=== PATIENT | female | born 1965 | race Caucasian/White ===

== ENCOUNTER 2018-07-15 11:24 | Inpatient (IN) | payer OTHER ==
[~2018-07-15] VITALS: Ht 157.5 cm; Wt 58.4 kg
[2018-07-15] MEDS ORDERED: ONDANSETRON 2MG/ML, 2ML IVPush ONE (11:30)
--- NOTE | 2018-07-15 11:35 | NUR ---
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 PAIN STARTED SUDDENLY. PT REPORTS DIARRHEA TODAY. SIMA BLOOD IN HER STOOL. PT SEEN BY DR. FISHMAN, IV STARTED. PT TO BE MEDICATED FOR PAIN.
[2018-07-15] MEDS ORDERED: ONDANSETRON 2MG/ML, 2ML ONE (11:42)
[2018-07-15] MEDS ORDERED: HYDROmorphone 1 MG/ML, 1ML ONE ×2 (11:43→13:37)
[2018-07-15] MEDS: HYDROmorphone 2 MG/ML, 1ML IVPush PRN ×2 (11:44→13:42)
--- NOTE | 2018-07-15 11:55 | NUR ---
TASK RN: PT SP02 = 72% ON RA FOLLOWING DILAUDID IVP. AT AWAKE AND CONVERSES APPROPRIATELY. 02 2L NC PLACED WITH EFFECT.
[2018-07-15 11:56] LABS: BASOPHILS # (AUTO) 0.06 x10^3/uL (0-0.1); BASOPHILS % (AUTO) 1 % (0-1); EOSINOPHILS # (AUTO) 0.09 x10^3/uL (0-0.4); EOSINOPHILS % (AUTO) 2 % (1-7); LYMPHOCYTES # (AUTO) 2.21 x10^3/uL (1-3.4); LYMPHOCYTES % (AUTO) 43 % (22-44); MD NO; MEAN CORPUSCULAR HEMOGLOBIN 30.5 pg (27.0-34.8); MEAN CORPUSCULAR HGB CONC 32.8 g/dL (32.4-35.8); MEAN PLATELET VOLUME 7.9 fL (7.4-10.4); MONOCYTES # (AUTO) 0.78 x10^3/uL (0.2-0.8); MONOCYTES % (AUTO) 15 % (2-9); NEUTROPHILS # (AUTO) 2.03 x10^3/uL (1.8-6.8); NEUTROPHILS % (AUTO) 39 % (42-75); PLATELET COUNT 188 x10^3/uL (130-400); RED CELL DISTRIBUTION WIDTH 13.9 % (9.6-15.2)
[2018-07-15 12:06] LABS: ALBUMIN 3.3 g/dL (3.4-5.0); ANION GAP 6 mmol/L (5-15); CALCIUM 8.1 mg/dL (8.5-10.1); CHLORIDE 103 mmol/L (98-107)
[2018-07-15 12:09] LABS: ALANINE AMINOTRANSFERASE 54 U/L (12-78); ALKALINE PHOSPHATASE 82 U/L (45-117); BILIRUBIN,TOTAL 0.2 mg/dL (0.2-1.0); CREATININE 0.46 mg/dL (0.55-1.02); TOTAL PROTEIN 6.1 g/dL (6.4-8.2)
--- NOTE | 2018-07-15 12:28 | NUR ---
PT TO CT.
[2018-07-15] MEDS ORDERED: OMNIPAQUE 350 MG/ML, 100ML BOTTLE ONE (13:07)
--- NOTE | 2018-07-15 13:23 | NUR ---
PT C/O OF WANTING TO COUGH BUT DOES NOT WANT TO DUE TO ABD PAIN. STILL WAITING FOR CT. PT WANTS TO USE INHALER BUT DID NOT BRING IT. DR. FISHMAN AWARE.
[2018-07-15 13:35] LABS: MICROSCOPIC NOT IND
--- NOTE | 2018-07-15 13:47 | NUR ---
PT REMEDICATED FOR PAIN. VSS.
[2018-07-15 13:48] LABS: CULTURE INDICATED? NO
--- NOTE | 2018-07-15 13:50 | NUR ---
DR. FISHMAN AT BEDSIDE. PT TO BE ADMITTED FOR HEMATOMA AT ABDOMINAL WALL.
[2018-07-15] MEDS ORDERED: ALPR0.5T PO (15:00)
[2018-07-15 15:01] VITALS: BP 160/76
[2018-07-15] MEDS: MORPHINE SULFATE 4 MG/ML, 1ML IVPush PRN ×2 (15:23→23:40)
[2018-07-15] MEDS ORDERED: PROMETHAZINE 25 MG/ML, 1ML IM PRN (15:30)
[2018-07-15] MEDS ORDERED: ONDANSETRON 2MG/ML, 2ML IVPush PRN (15:30)
[2018-07-15] MEDS ORDERED: ACETAMINOPHEN 325 MG TABLET PO PRN (15:30)
[2018-07-15] MEDS ORDERED: LABETALOL 5MG/ML, 20ML IVPush PRN (15:30)
[2018-07-15] MEDS ORDERED: OXYcodone IR 5MG TABLET PO PRN (15:30)
[2018-07-15] MEDS: D5%-0.45NACL+KCL 40MEQ 1,000 ML IV SCH ×2 (15:50→23:40)
[2018-07-15 16:16] LABS: INTERNATIONAL NORMALIZED RATIO 1.06 (0.93-1.1); PROTHROMBIN TIME 11.1 Seconds (9.6-11.5)
[2018-07-15] MEDS ORDERED: POTASSIUM CHLORIDE 20 MEQ TAB.ER.PRT PO SCH (17:00)
[2018-07-15 19:00] VITALS: BP 162/77
[2018-07-16 02:35] VITALS: BP 134/75
[2018-07-16] MEDS: morphine SULFATE 10 MG/ML, 1ML IVPush PRN ×4 (03:09→13:18)
[2018-07-16 03:15] LABS: BASOPHILS # (AUTO) 0.03 x10^3/uL (0-0.1); BASOPHILS % (AUTO) 0 % (0-1); EOSINOPHILS # (AUTO) 0.15 x10^3/uL (0-0.4); EOSINOPHILS % (AUTO) 2 % (1-7); LYMPHOCYTES % (AUTO) 19 % (22-44); MD NO; MEAN CORPUSCULAR HGB CONC 34.2 g/dL (32.4-35.8); MEAN CORPUSCULAR VOLUME 93.6 fL (80-100); MONOCYTES # (AUTO) 0.72 x10^3/uL (0.2-0.8); MONOCYTES % (AUTO) 10 % (2-9); NEUTROPHILS # (AUTO) 5.07 x10^3/uL (1.8-6.8); NEUTROPHILS % (AUTO) 69 % (42-75); PLATELET COUNT 184 x10^3/uL (130-400); RED BLOOD COUNT 4.04 x10^6/uL (3.82-5.3)
[2018-07-16 03:21] LABS: ALANINE AMINOTRANSFERASE 44 U/L (12-78); ANION GAP 4 mmol/L (5-15); CHLORIDE 113 mmol/L (98-107); CREATININE 0.49 mg/dL (0.55-1.02)
[2018-07-16 03:23] LABS: ALKALINE PHOSPHATASE 84 U/L (45-117); BILIRUBIN,TOTAL 0.4 mg/dL (0.2-1.0); TOTAL PROTEIN 5.7 g/dL (6.4-8.2)
[2018-07-16 07:30] VITALS: BP 167/84
[2018-07-16 13:31] VITALS: BP 136/72
[2018-07-16] MEDS ORDERED: BUPIVACAINE/PF-EPI 0.5% 1:200K ONE (15:49)
[2018-07-16] MEDS ORDERED: MIDAZOLAM 1 MG/ML, 2ML ONE (15:49)
[2018-07-16] MEDS ORDERED: FENTANYL PF 250 MCG/5ML ONE (15:49)
[2018-07-16] MEDS ORDERED: SODIUM CHLORIDE 0.9% PF 10ML ONE (15:50)
[2018-07-16] MEDS ORDERED: EPHEDRINE 50 MG/ML, 1ML ONE (15:50)
[2018-07-16] MEDS ORDERED: PROPOFOL 10 MG/ML, 20ML ONE (15:51)
[2018-07-16] MEDS ORDERED: WATER-INJECTION,STERILE 10 ML IV ONE (15:51)
[2018-07-16] MEDS ORDERED: LIDOCAINE-MPF 2% ,5ML ONE (15:51)
[2018-07-16] MEDS ORDERED: CEFAZOLIN 1,000 MG ONE (15:51)
[2018-07-16] MEDS ORDERED: ONDANSETRON 2MG/ML, 2ML ONE ×2 (16:19)
[2018-07-16] MEDS ORDERED: hydrALAzine 20 MG/ML, 1ML IV PRN (16:30)
[2018-07-16] MEDS ORDERED: HYDROmorphone 2 MG/ML, 1ML IVPush PRN (16:30)
[2018-07-16] MEDS ORDERED: FENTANYL PF 100 MCG/2ML IV PRN (16:30)
[2018-07-16] MEDS ORDERED: HALOPERIDOL 5 MG/ML IV PRN (16:30)
[2018-07-16] MEDS ORDERED: OXYcodone 5 MG/5 ML ORAL.SOL UDC PO PRN (16:30)
[2018-07-16] MEDS ORDERED: MEPERIDINE/PF 25MG/0.5ML IVPush PRN (16:30)
[2018-07-16] MEDS ORDERED: ACETAMINOPHEN 325 MG TABLET PO PRN (16:30)
[2018-07-16] MEDS ORDERED: PROMETHAZINE 25 MG/ML, 1ML IV PRN (16:30)
[2018-07-16] MEDS ORDERED: LABETALOL 5 MG/ML SYRINGE IVPush PRN (17:38)
[2018-07-16] MEDS ORDERED: HYDROcodone/APAP 5/325 TABLET PO PRN (18:00)
[2018-07-16] MEDS ORDERED: morphine SULFATE 10 MG/ML, 1ML IV PRN (18:00)
[2018-07-16] MEDS ORDERED: ONDANSETRON 2MG/ML, 2ML IV PRN (18:00)
[2018-07-16] MEDS: POTASSIUM CHLORIDE 20 MEQ in LACTATED RINGERS 1,000 ML IV SCH (18:01)
[2018-07-16] MEDS: OXYcodone/APAP 5/325MG TABLET PO PRN (19:38)
[2018-07-16] MEDS: SODIUM CHLORIDE FLUSH 10ML SYR IVF SCH (19:39)
[2018-07-16 19:47] VITALS: BP 113/68
[2018-07-16] MEDS ORDERED: DIPHENHYDRAMINE 50 MG CAPSULE PO ONE (21:30)
[2018-07-17] MEDS: morphine SULFATE 10 MG/ML, 1ML IVPush PRN (01:34)
[2018-07-17 01:50] VITALS: BP 121/69
[2018-07-17] MEDS: CEFOTETAN PMX 1GM/50ML 50 ML IVPB SCH ×2 (03:30→15:13)
[2018-07-17] MEDS: POTASSIUM CHLORIDE 20 MEQ in LACTATED RINGERS 1,000 ML IV SCH ×2 (03:30→15:13)
[2018-07-17] MEDS: HYDROmorphone 2 MG/ML, 1ML IVPush PRN ×2 (03:30→08:25)
[2018-07-17 05:48] LABS: BASOPHILS # (AUTO) 0.04 x10^3/uL (0-0.1); BASOPHILS % (AUTO) 0 % (0-1); EOSINOPHILS # (AUTO) 0.39 x10^3/uL (0-0.4); EOSINOPHILS % (AUTO) 4 % (1-7); LYMPHOCYTES # (AUTO) 1.65 x10^3/uL (1-3.4); LYMPHOCYTES % (AUTO) 19 % (22-44); MD NO; MEAN CORPUSCULAR HEMOGLOBIN 31.9 pg (27.0-34.8); MEAN CORPUSCULAR HGB CONC 33.8 g/dL (32.4-35.8); MEAN CORPUSCULAR VOLUME 94.3 fL (80-100); MEAN PLATELET VOLUME 7.9 fL (7.4-10.4); MONOCYTES % (AUTO) 11 % (2-9); NEUTROPHILS % (AUTO) 65 % (42-75); PLATELET COUNT 204 x10^3/uL (130-400); RED BLOOD COUNT 3.84 x10^6/uL (3.82-5.3)
[2018-07-17 05:54] LABS: CHLORIDE 106 mmol/L (98-107)
[2018-07-17 06:02] LABS: ALANINE AMINOTRANSFERASE 31 U/L (12-78); ALBUMIN 2.8 g/dL (3.4-5.0); ALKALINE PHOSPHATASE 84 U/L (45-117); ANION GAP 4 mmol/L (5-15); BILIRUBIN,TOTAL 0.4 mg/dL (0.2-1.0); CALCIUM 8.1 mg/dL (8.5-10.1); CREATININE 0.83 mg/dL (0.55-1.02); TOTAL PROTEIN 5.7 g/dL (6.4-8.2)
[2018-07-17 08:21] VITALS: BP 174/78
[2018-07-17] MEDS: ENOXAPARIN 40 MG/0.4 ML SQ SCH (08:25)
[2018-07-17] MEDS: SODIUM CHLORIDE FLUSH 10ML SYR IVF SCH ×2 (09:00→21:00)
[2018-07-17] MEDS: OXYcodone/APAP 5/325MG TABLET PO PRN ×3 (11:08→19:34)
[2018-07-17 12:57] VITALS: BP 112/67
[2018-07-17 20:57] VITALS: BP 145/73
[2018-07-17 21:44] VITALS: BP 151/106
[2018-07-18] MEDS: POTASSIUM CHLORIDE 20 MEQ in LACTATED RINGERS 1,000 ML IV SCH ×2 (01:47→10:24)
[2018-07-18] MEDS: OXYcodone/APAP 5/325MG TABLET PO PRN ×5 (01:47→20:19)
[2018-07-18 02:16] VITALS: BP 150/65
[2018-07-18 07:40] VITALS: BP 197/68
[2018-07-18] MEDS: SODIUM CHLORIDE FLUSH 10ML SYR IVF SCH ×2 (08:20→20:19)
[2018-07-18] MEDS: ENOXAPARIN 40 MG/0.4 ML SQ SCH (08:20)
[2018-07-18] MEDS: AMLODIPINE 5 MG TABLET PO SCH ×2 (08:20→20:19)
[2018-07-18] MEDS ORDERED: NICOTINE 14MG/24 HR PATCH.TD24 ONE (10:44)
[2018-07-18 12:50] VITALS: BP 161/69
[2018-07-18] MEDS ORDERED: NICOTINE 14MG/24 HR PATCH.TD24 TD SCH (13:00)
[2018-07-18] MEDS ORDERED: ACET-1770 PO (14:59)
[2018-07-18] MEDS ORDERED: AMLO-150 PO (14:59)
[2018-07-18] MEDS ORDERED: IBUP100T7 PO (14:59)
[2018-07-18] MEDS ORDERED: OXYC1TAB7 PO (14:59)
[2018-07-18 16:46] VITALS: BP 171/75
[2018-07-18] MEDS ORDERED: HYDROCHLOROTHIAZIDE 25 MG TABLET PO ONE (17:00)
[2018-07-18] MEDS ORDERED: hydrALAzine 20 MG/ML, 1ML IV ONE (17:00)
[2018-07-18 17:54] VITALS: BP 137/75
[2018-07-18 19:06] VITALS: BP 123/64
== END 2018-07-18 22:30 | disposition home or self-care (01) | DRG 501 ==
LOC: ED 11:59 → 3NE 13:57
PROVIDERS: ADMIT Hospitalist; ATTEND Hospitalist
PROC: 0K9K0ZZ Drainage of Right Abdomen Muscle, Open Approach (ICD-10-PCS; principal; 2018-07-15)
DX: M79.81 Nontraumatic hematoma of soft tissue (principal); E44.1 Mild protein-calorie malnutrition; E87.1 Hypo-osmolality and hyponatremia; D18.03 Hemangioma of intra-abdominal structures; E16.2 Hypoglycemia, unspecified; E87.6 Hypokalemia; F10.229 Alcohol dependence with intoxication, unspecified; F17.210 Nicotine dependence, cigarettes, uncomplicated; F41.9 Anxiety disorder, unspecified; I10 Essential (primary) hypertension; Z85.71 Personal history of Hodgkin lymphoma; Z88.0 Allergy status to penicillin; Z68.23 Body mass index [BMI] 23.0-23.9, adult
CPT/HCPCS: 36415; 74177; 76705; 80053; 81003; 83605; 83690; 85014; 85018; 85025; 85610; 85730; 96374; 96375; 96376; 99285; G0378; J0690; J1170; J1650; J2250; J2405; J2704; J3010; J3480; J3490; Q9967; J2270; J7120

== ENCOUNTER 2018-07-28 04:51 | Emergency (ER) | payer OTHER ==
[~2018-07-28] VITALS: Ht 154.9 cm; Wt 59.0 kg
[~2018-07-28 04:51] MED LIST: ACET-1770 PO; ALPR0.5T PO; AMLO-150 PO; IBUP100T7 PO; OXYC1TAB7 PO
[2018-07-28 04:54] VITALS: BP 135/78
--- NOTE | 2018-07-28 05:15 | NUR ---
NO ANSWER WHEN CALLED FOR ROOM
--- NOTE | 2018-07-28 05:48 | NUR ---
NO ANSWER WHEN CALLED FOR ROOM, SAGARBY CHECKED
--- NOTE | 2018-07-28 06:01 | NUR ---
CALLED FOR ROOM, NO ANSWER
== END 2018-07-28 06:15 | disposition left against medical advice (07) ==
LOC: ED 06:09
DX: T81.9XXA Unspecified complication of procedure, initial encounter (principal); Z53.21 Procedure and treatment not carried out due to patient leaving prior to being seen by health care provider

== ENCOUNTER 2018-10-26 07:56 | Outpatient (CLI) | payer OTHER | END 2018-10-26 23:59 | disposition home or self-care (01) | LOC: CFH 07:56 | PROVIDERS: ATTEND Physician Assistant | DX: M48.02 Spinal stenosis, cervical region (principal); M47.812 Spondylosis without myelopathy or radiculopathy, cervical region | CPT/HCPCS: 72141 ==

== ENCOUNTER → 2018-11-09 | Outpatient (CLI) | payer OTHER ==
[~2018-11-09] MED LIST changes: +GABA300C10 PO; +LISI-167 PO; +METO25TA35 PO; +MULT-717 PO; +TRAZ50TA66 PO
[2018-11-09 09:20] LABS: BASOPHILS # (AUTO) 0.04 x10^3/uL (0-0.1); BASOPHILS % (AUTO) 1 % (0-1); EOSINOPHILS # (AUTO) 0.17 x10^3/uL (0-0.4); EOSINOPHILS % (AUTO) 2 % (1-7); LYMPHOCYTES # (AUTO) 1.63 x10^3/uL (1-3.4); LYMPHOCYTES % (AUTO) 22 % (22-44); MD NO; MEAN CORPUSCULAR HEMOGLOBIN 30.1 pg (27.0-34.8); MEAN CORPUSCULAR HGB CONC 32.7 g/dL (32.4-35.8); MEAN CORPUSCULAR VOLUME 92.2 fL (80-100); MONOCYTES # (AUTO) 0.82 x10^3/uL (0.2-0.8); MONOCYTES % (AUTO) 11 % (2-9); NEUTROPHILS # (AUTO) 4.73 x10^3/uL (1.8-6.8); NEUTROPHILS % (AUTO) 64 % (42-75); PLATELET COUNT 276 x10^3/uL (130-400); RED BLOOD COUNT 4.66 x10^6/uL (3.82-5.3); RED CELL DISTRIBUTION WIDTH 14.8 % (9.6-15.2)
[2018-11-09 09:27] LABS: MICROSCOPIC NOT IND
[2018-11-09 09:27] LABS: INTERNATIONAL NORMALIZED RATIO 0.97 (0.93-1.1); PROTHROMBIN TIME 10.2 Seconds (9.6-11.5)
[2018-11-09 09:30] LABS: ANION GAP 7 mmol/L (5-15); CALCIUM 9.1 mg/dL (8.5-10.1); CHLORIDE 103 mmol/L (98-107)
[2018-11-09 09:32] LABS: CULTURE INDICATED? NO
[2018-11-09 09:35] LABS: ALANINE AMINOTRANSFERASE 27 U/L (12-78); ALKALINE PHOSPHATASE 104 U/L (45-117); BILIRUBIN,TOTAL 0.8 mg/dL (0.2-1.0); CREATININE 0.66 mg/dL (0.55-1.02); TOTAL PROTEIN 7.4 g/dL (6.4-8.2)
== END | disposition home or self-care (01) ==
LOC: STAR 08:11
PROVIDERS: ATTEND Neurological Surgery
DX: Z01.818 Encounter for other preprocedural examination (principal); M47.12 Other spondylosis with myelopathy, cervical region; R94.31 Abnormal electrocardiogram [ECG] [EKG]
CPT/HCPCS: 36415; 71046; 80053; 81003; 85025; 85610; 85730; 93005

== ENCOUNTER 2018-11-21 05:37 | Inpatient (IN) | payer OTHER ==
[2018-11-09 08:50] VITALS: BP 125/71
[~2018-11-21] VITALS: Ht 154.9 cm; Wt 58.1 kg
[2018-11-21] MEDS ORDERED: BACITRACIN 50,000 UNIT ONE (06:01)
[2018-11-21] MEDS ORDERED: BUPIVACAINE/EPI 0.5% 1:200K ONE (06:01)
[2018-11-21] MEDS ORDERED: THROMBIN 5,000 UNIT VIAL TP ONE (06:01)
[2018-11-21] MEDS ORDERED: VITAMIN B PO (06:07)
[2018-11-21] MEDS ORDERED: ALBUTEROL INH (06:21)
[2018-11-21] MEDS ORDERED: ADVAIR INH (06:24)
[2018-11-21] MEDS: LACTATED RINGERS 1,000 ML IV SCH (06:24)
[2018-11-21] MEDS ORDERED: FAMOTIDINE 20 MG TABLET PO ONE (06:30)
[2018-11-21] MEDS ORDERED: GABAPENTIN 300 MG CAPSULE PO ONE (06:30)
[2018-11-21] MEDS ORDERED: OxyconTIN ER 10 MG TAB.ER PO ONE (06:30)
[2018-11-21] MEDS ORDERED: ACETAMINOPHEN 500 MG TABLET PO ONE (06:30)
[2018-11-21] MEDS ORDERED: MIDAZOLAM 1 MG/ML, 2ML ONE (06:35)
[2018-11-21] MEDS ORDERED: PROPOFOL 100 ML ONE (06:35)
[2018-11-21] MEDS ORDERED: PROPOFOL 10 MG/ML, 20ML ONE (06:36)
[2018-11-21] MEDS ORDERED: FENTANYL PF 250 MCG/5ML ONE (06:36)
[2018-11-21] MEDS ORDERED: SUCCINYLCHOLINE 20 MG/ML, 10ML ONE (06:37)
[2018-11-21] MEDS ORDERED: ONDANSETRON 2MG/ML, 2ML ONE ×2 (06:50→08:16)
[2018-11-21] MEDS ORDERED: ROCURONIUM 10 MG/ML,10ML ONE (06:50)
[2018-11-21] MEDS ORDERED: METOPROLOL 1 MG/ML, 5ML ONE (06:50)
[2018-11-21] MEDS ORDERED: DEXAMETHASONE 4 MG/ML, 1ML ONE ×3 (06:59)
[2018-11-21] MEDS ORDERED: CEFAZOLIN 1,000 MG ONE ×2 (07:00)
[2018-11-21] MEDS ORDERED: EPHEDRINE 50 MG/ML, 1ML ONE ×2 (07:41)
[2018-11-21] MEDS ORDERED: DIAZEPAM 5 MG/ML, 2ML IVPush PRN (08:00)
[2018-11-21] MEDS ORDERED: LABETALOL 5MG/ML, 20ML IV PRN (08:00)
[2018-11-21] MEDS ORDERED: OXYcodone 5 MG/5 ML ORAL.SOL UDC PO PRN (08:00)
[2018-11-21] MEDS ORDERED: MEPERIDINE/PF 25MG/0.5ML IVPush PRN (08:00)
[2018-11-21] MEDS ORDERED: ONDANSETRON 2MG/ML, 2ML IV PRN ×2 (08:00→11:00)
[2018-11-21] MEDS ORDERED: PROMETHAZINE 25 MG/ML, 1ML IV PRN (08:00)
[2018-11-21] MEDS ORDERED: HYDROmorphone 2 MG/ML, 1ML IVPush PRN (08:00)
[2018-11-21] MEDS ORDERED: hydrALAzine 20 MG/ML, 1ML IV PRN (08:00)
[2018-11-21] MEDS ORDERED: METOPROLOL 1 MG/ML, 5ML IV PRN (08:00)
[2018-11-21] MEDS ORDERED: FENTANYL PF 100 MCG/2ML ONE ×2 (08:43→09:26)
[2018-11-21] MEDS ORDERED: OXYcodone 5 MG/5 ML ORAL.SOL UDC ONE (08:43)
[2018-11-21] MEDS: FENTANYL PF 100 MCG/2ML IV PRN ×3 (08:45→09:28)
[2018-11-21] MEDS ORDERED: METHOCARBAMOL 1,000 MG in DEXTROSE 5% 100 ML IV ONE (09:00)
[2018-11-21 10:00] VITALS: BP 139/79
[2018-11-21] MEDS ORDERED: ALBUTEROL SULFATE 2.5 MG/3 ML NPPB PRN (11:00)
[2018-11-21] MEDS ORDERED: HYDROmorphone 2 MG/ML, 1ML IM PRN (11:00)
[2018-11-21] MEDS ORDERED: DIPHENHYDRAMINE 50 MG/ML, 1ML IVPush PRN (11:00)
[2018-11-21] MEDS ORDERED: DIPHENHYDRAMINE 50 MG CAPSULE PO PRN (11:00)
[2018-11-21] MEDS ORDERED: HYDROcodone/APAP 5/325 TABLET PO PRN (11:00)
[2018-11-21] MEDS ORDERED: ALBUTEROL SULFATE 2.5MG/0.5ML NPPB SCH (11:00)
[2018-11-21] MEDS ORDERED: DIPHENHYDRAMINE 50 MG/ML, 1ML IM PRN (11:00)
[2018-11-21] MEDS ORDERED: CYCLOBENZAPRINE 10 MG TABLET PO PRN (11:00)
[2018-11-21] MEDS ORDERED: MAGNESIUM HYDROXIDE 8%, 30ML UDC PO PRN (11:00)
[2018-11-21] MEDS ORDERED: PROMETHAZINE 25 MG/ML, 1ML IM PRN (11:00)
[2018-11-21] MEDS ORDERED: BISACODYL 10 MG SUPP PR PRN (11:00)
[2018-11-21] MEDS: HYDROmorphone 2MG TABLET PO PRN (11:42)
[2018-11-21] MEDS: DEXAMETHASONE 4 MG/ML, 1ML IV SCH ×3 (11:44→22:52)
[2018-11-21] MEDS: D5%-0.9% NACL+KCL 20MEQ 1,000 ML IV SCH ×2 (12:01→21:00)
[2018-11-21 12:47] VITALS: BP 166/84
[2018-11-21] MEDS: GABAPENTIN 300 MG CAPSULE PO SCH ×3 (15:12→21:00)
[2018-11-21] MEDS: CEFAZOLIN PMX 1GM/50ML 50 ML IVPB SCH ×2 (15:12→22:52)
[2018-11-21] MEDS: OXYcodone/APAP 5/325MG TABLET PO PRN ×2 (15:12→19:35)
[2018-11-21 20:01] VITALS: BP 145/82
[2018-11-21] MEDS ORDERED: BUDESONIDE 0.5 MG/2 ML INHA INH SCH (21:00)
[2018-11-22 00:08] VITALS: BP 175/72
[2018-11-22] MEDS: OXYcodone/APAP 5/325MG TABLET PO PRN ×4 (00:12→13:01)
[2018-11-22] MEDS: HYDROmorphone 2MG TABLET PO PRN (01:16)
[2018-11-22 04:01] VITALS: BP 162/73
[2018-11-22] MEDS: DEXAMETHASONE 4 MG/ML, 1ML IV SCH ×2 (04:13→11:59)
[2018-11-22 05:49] LABS: BASOPHILS % (AUTO) 0 % (0-1); EOSINOPHILS % (AUTO) 0 % (1-7); LYMPHOCYTES # (AUTO) 0.57 x10^3/uL (1-3.4); LYMPHOCYTES % (AUTO) 6 % (22-44); MD NO; MEAN CORPUSCULAR HEMOGLOBIN 30.3 pg (27.0-34.8); MEAN CORPUSCULAR VOLUME 91.8 fL (80-100); MEAN PLATELET VOLUME 7.5 fL (7.4-10.4); MONOCYTES % (AUTO) 10 % (2-9); NEUTROPHILS # (AUTO) 8.32 x10^3/uL (1.8-6.8); NEUTROPHILS % (AUTO) 84 % (42-75); PLATELET COUNT 227 x10^3/uL (130-400); RED BLOOD COUNT 4.57 x10^6/uL (3.82-5.3); RED CELL DISTRIBUTION WIDTH 14.5 % (9.6-15.2)
[2018-11-22] MEDS: GABAPENTIN 300 MG CAPSULE PO SCH ×3 (05:55→15:09)
[2018-11-22] MEDS: D5%-0.9% NACL+KCL 20MEQ 1,000 ML IV SCH (05:57)
[2018-11-22] MEDS ORDERED: METOPROLOL TARTRATE 25 MG TABLET PO SCH (06:00)
[2018-11-22 06:04] LABS: ANION GAP 6 mmol/L (5-15); CALCIUM 8.5 mg/dL (8.5-10.1); CHLORIDE 100 mmol/L (98-107)
[2018-11-22 06:07] LABS: CREATININE 0.52 mg/dL (0.55-1.02)
[2018-11-22 06:46] VITALS: BP 164/75
[2018-11-22] MEDS ORDERED: LISINOPRIL 10 MG TABLET PO SCH (09:00)
[2018-11-22] MEDS ORDERED: TRAZODONE 50MG TABLET PO SCH (09:00)
[2018-11-22] MEDS ORDERED: SENNA/DOCUSATE TABLET PO SCH (09:00)
[2018-11-22] MEDS ORDERED: METH4TAB2 PO (09:38)
[2018-11-22] MEDS ORDERED: OXYC-302 PO (09:39)
[2018-11-22] MEDS ORDERED: CYCL5TAB PO (09:40)
[2018-11-22 12:25] VITALS: BP 105/61
== END 2018-11-22 16:45 | disposition home or self-care (01) | DRG 472 ==
LOC: ORIP 05:37 → 4NOR 09:53
PROVIDERS: ADMIT Neurological Surgery; ATTEND Neurological Surgery
PROC: 0RT30ZZ Resection of Cervical Vertebral Disc, Open Approach (ICD-10-PCS; 2018-11-21)
PROC: 4A11X4G Monitoring of Peripheral Nervous Electrical Activity, Intraoperative, External Approach (ICD-10-PCS; 2018-11-21)
PROC: 0RG20A0 Fusion of 2 or more Cervical Vertebral Joints with Interbody Fusion Device, Anterior Approach, Anterior Column, Open Approach (ICD-10-PCS; principal; 2018-11-21 07:00)
DX: M48.02 Spinal stenosis, cervical region (principal); G99.2 Myelopathy in diseases classified elsewhere; M40.292 Other kyphosis, cervical region; F41.9 Anxiety disorder, unspecified; I10 Essential (primary) hypertension; M50.10 Cervical disc disorder with radiculopathy, unspecified cervical region; Z88.6 Allergy status to analgesic agent; Z88.0 Allergy status to penicillin; Z82.61 Family history of arthritis; Z82.49 Family history of ischemic heart disease and other diseases of the circulatory system; Z82.5 Family history of asthma and other chronic lower respiratory diseases; Z81.8 Family history of other mental and behavioral disorders
CPT/HCPCS: 36415; 72040; 80048; 85025; C1713; G0378; J0690; J1100; J2250; J2405; J2704; J3010; C1763; J0330; J2800; J3480; J7120

== ENCOUNTER 2018-11-30 19:54 | Inpatient (IN) | payer OTHER ==
[~2018-11-30] VITALS: Ht 157.5 cm; Wt 60.0 kg
[~2018-11-30 19:54] MED LIST changes: +ADVAIR INH; +ALBUTEROL INH; +CYCL5TAB PO; +METH4TAB2 PO; +OXYC-302 PO; +VITAMIN B PO
--- NOTE | 2018-11-30 20:15 | NUR ---
FIRST CONTACT WITH PT. PT HAD SURGERY ON HER SPINE ON 11/21 PT REPORTS BILATERAL FEET SWELLING PT ALSO REPORTS SHE HAS HAD RIGHT SIDED CHEST PAIN X7 DAYS PT'S AOX4. RESPS EVEN AND UNLABORED. ALL MONITORS IN PLACE. CALL LIGHT WITHIN REACH. PA AT BEDSIDE TO EVALUATE AT THIS TIME.
[2018-11-30] MEDS ORDERED: ONDANSETRON 2MG/ML, 2ML ONE (20:29)
[2018-11-30] MEDS ORDERED: ONDANSETRON 2MG/ML, 2ML IVPush ONE (20:30)
[2018-11-30] MEDS ORDERED: SODIUM CHLORIDE FLUSH 10ML SYR IVF ONE (20:30)
[2018-11-30] MEDS ORDERED: HYDROmorphone 2 MG/ML, 1ML ONE (20:30)
[2018-11-30] MEDS ORDERED: HYDROmorphone 1 MG/ML, 1ML INJ IV ONE (20:30)
[2018-11-30 20:41] LABS: BASOPHILS # (AUTO) 0.05 x10^3/uL (0-0.1); BASOPHILS % (AUTO) 1 % (0-1); EOSINOPHILS # (AUTO) 0.23 x10^3/uL (0-0.4); EOSINOPHILS % (AUTO) 2 % (1-7); LYMPHOCYTES # (AUTO) 1.48 x10^3/uL (1-3.4); LYMPHOCYTES % (AUTO) 13 % (22-44); MD NO; MEAN CORPUSCULAR HEMOGLOBIN 31.1 pg (27.0-34.8); MEAN CORPUSCULAR HGB CONC 33.5 g/dL (32.4-35.8); MEAN PLATELET VOLUME 6.3 fL (7.4-10.4); MONOCYTES # (AUTO) 0.76 x10^3/uL (0.2-0.8); MONOCYTES % (AUTO) 7 % (2-9); NEUTROPHILS # (AUTO) 8.79 x10^3/uL (1.8-6.8); NEUTROPHILS % (AUTO) 78 % (42-75); PLATELET COUNT 306 x10^3/uL (130-400); RED BLOOD COUNT 4.15 x10^6/uL (3.82-5.3); RED CELL DISTRIBUTION WIDTH 15.2 % (9.6-15.2)
--- NOTE | 2018-11-30 20:41 | NUR ---
PT MEDICATED PER EMAR. PT TOLERATED WELL.
[2018-11-30 20:53] LABS: ALANINE AMINOTRANSFERASE 23 U/L (12-78); ANION GAP 9 mmol/L (5-15); CALCIUM 8.2 mg/dL (8.5-10.1); CHLORIDE 95 mmol/L (98-107)
[2018-11-30 20:56] LABS: ALKALINE PHOSPHATASE 119 U/L (45-117); BILIRUBIN,TOTAL 0.3 mg/dL (0.2-1.0); TOTAL PROTEIN 5.9 g/dL (6.4-8.2); TROPONIN I 0.035 ng/mL (0.000-0.045)
--- NOTE | 2018-11-30 21:16 | NUR ---
pt in ct now.
--- NOTE | 2018-11-30 21:18 | NUR ---
pt back to room from ct now.
[2018-11-30] MEDS ORDERED: CEFTRIAXONE PMX 1GM/50ML 50 ML IVPB ONE ×2 (22:00)
[2018-11-30] MEDS ORDERED: CEFTRIAXONE PMX 1GM/50ML 50 ML ONE (22:05)
--- NOTE | 2018-11-30 22:22 | NUR ---
ABX INFUSING AT THIS TIME AFTER BLOOD CULTURE X2.
[2018-11-30] MEDS ORDERED: AZITHROMYCIN 500 MG in SODIUM CHLORIDE 0.9% 250 ML IV ONE (22:30)
--- NOTE | 2018-11-30 23:34 | NUR ---
ABX INFUSING AT THIS TIME. PT TOLERATED WELL.
--- NOTE | 2018-11-30 23:35 | NUR ---
REPORT GIVEN TO CARLOS WEI. ALL QUESTIONS ANSWERED.
--- NOTE | 2018-11-30 23:35 | NUR ---
HOSPITALIST AT BEDSIDE.
[2018-12-01] VITALS: BP 123/76
[2018-12-01] MEDS ORDERED: hydrALAzine 20 MG/ML, 1ML IVPush PRN (00:30)
[2018-12-01] MEDS ORDERED: ONDANSETRON ODT 4 MG PO PRN (00:30)
[2018-12-01] MEDS ORDERED: DOCUSATE 100 MG CAPSULE PO PRN (00:30)
[2018-12-01] MEDS ORDERED: ACETAMINOPHEN 325 MG TABLET PO PRN (00:30)
[2018-12-01] MEDS: ENOXAPARIN 40 MG/0.4 ML SQ SCH ×2 (01:28→23:50)
[2018-12-01] MEDS: HYDROmorphone 2 MG/ML, 1ML IVPush PRN ×4 (01:29→16:25)
[2018-12-01] MEDS: NICOTINE 21 MG/24 HR PATCH.TD24 TD SCH ×2 (01:29→23:51)
[2018-12-01 02:36] LABS: TROPONIN I 0.065 ng/mL (0.000-0.045)
[2018-12-01] MEDS ORDERED: OMNIPAQUE 350 MG/ML, 100ML BOTTLE ONE (05:34)
[2018-12-01 09:54] VITALS: BP 158/88
[2018-12-01] MEDS ORDERED: FUROSEMIDE 40 MG/4 ML IV ONE (13:00)
[2018-12-01] MEDS ORDERED: ALBUTEROL/IPRATROPIUM 2.5MG/0.5MG, 3 ML NPPB PRN (13:00)
[2018-12-01] MEDS ORDERED: POTASSIUM CHLORIDE 20 MEQ TAB.ER.PRT PO ONE (13:00)
[2018-12-01] MEDS ORDERED: ALBUTEROL/IPRATROPIUM 2.5MG/0.5MG, 3 ML ONE (13:03)
[2018-12-01] MEDS: KETOROLAC 30 MG/1 ML IVPush SCH ×2 (13:20→19:16)
[2018-12-01 16:03] VITALS: BP 150/81
[2018-12-01 18:34] VITALS: BP 118/74
[2018-12-01] MEDS: CEFTRIAXONE PMX 1GM/50ML 50 ML IV SCH (22:56)
[2018-12-01] MEDS: AZITHROMYCIN 500 MG in SODIUM CHLORIDE 0.9% 250 ML IV SCH (23:50)
[2018-12-02 00:02] VITALS: BP 169/84
[2018-12-02] MEDS: KETOROLAC 30 MG/1 ML IVPush SCH ×4 (00:55→18:27)
[2018-12-02] MEDS: TEMAZEPAM 15 MG CAPSULE PO PRN ×2 (01:05→20:42)
[2018-12-02 06:10] LABS: BASOPHILS # (AUTO) 0.02 x10^3/uL (0-0.1); BASOPHILS % (AUTO) 0 % (0-1); EOSINOPHILS # (AUTO) 0.27 x10^3/uL (0-0.4); EOSINOPHILS % (AUTO) 3 % (1-7); LYMPHOCYTES # (AUTO) 1.18 x10^3/uL (1-3.4); LYMPHOCYTES % (AUTO) 13 % (22-44); MD NO; MEAN CORPUSCULAR HEMOGLOBIN 29.9 pg (27.0-34.8); MEAN CORPUSCULAR HGB CONC 32.4 g/dL (32.4-35.8); MEAN CORPUSCULAR VOLUME 92.4 fL (80-100); MEAN PLATELET VOLUME 6.4 fL (7.4-10.4); MONOCYTES # (AUTO) 0.91 x10^3/uL (0.2-0.8); MONOCYTES % (AUTO) 10 % (2-9); NEUTROPHILS # (AUTO) 6.99 x10^3/uL (1.8-6.8); NEUTROPHILS % (AUTO) 75 % (42-75); PLATELET COUNT 286 x10^3/uL (130-400); RED BLOOD COUNT 4.53 x10^6/uL (3.82-5.3); RED CELL DISTRIBUTION WIDTH 14.7 % (9.6-15.2)
[2018-12-02 06:21] LABS: ANION GAP 5 mmol/L (5-15); CALCIUM 8.5 mg/dL (8.5-10.1); CHLORIDE 100 mmol/L (98-107); CREATININE 0.43 mg/dL (0.55-1.02)
[2018-12-02 07:05] VITALS: BP 190/89
[2018-12-02 08:17] VITALS: BP 182/88
[2018-12-02] MEDS ORDERED: METHYLPREDNISOLONE PO SCH (08:30)
[2018-12-02] MEDS ORDERED: CYCLOBENZAPRINE 10 MG TABLET PO PRN (09:00)
[2018-12-02] MEDS ORDERED: MEDROL MC SCH (09:00)
[2018-12-02] MEDS ORDERED: TRAZODONE 50MG TABLET PO SCH (09:00)
[2018-12-02] MEDS: FUROSEMIDE 40 MG/4 ML IV SCH (10:04)
[2018-12-02] MEDS: LISINOPRIL 10 MG TABLET PO SCH (10:04)
[2018-12-02] MEDS: MULTIVITAMINS/MINERALS TABLET PO SCH (10:04)
[2018-12-02] MEDS: POTASSIUM CHLORIDE 20 MEQ PACKET PO SCH (10:04)
[2018-12-02] MEDS: GABAPENTIN 300 MG CAPSULE PO SCH ×3 (10:04→20:42)
[2018-12-02] MEDS: METOPROLOL TARTRATE 25 MG TABLET PO SCH ×2 (10:04→20:43)
[2018-12-02 12:35] VITALS: BP 116/69
[2018-12-02 19:22] VITALS: BP 135/75
[2018-12-02] MEDS: AZITHROMYCIN 500 MG in SODIUM CHLORIDE 0.9% 250 ML IV SCH (23:58)
[2018-12-02] MEDS: CEFTRIAXONE PMX 1GM/50ML 50 ML IV SCH (23:58)
[2018-12-03] MEDS: NICOTINE 21 MG/24 HR PATCH.TD24 TD SCH (00:06)
[2018-12-03] MEDS: ENOXAPARIN 40 MG/0.4 ML SQ SCH (00:06)
[2018-12-03 01:07] VITALS: BP 147/85
[2018-12-03] MEDS: KETOROLAC 30 MG/1 ML IVPush SCH ×2 (01:44→09:26)
[2018-12-03 06:06] LABS: ANION GAP 7 mmol/L (5-15); CALCIUM 8.8 mg/dL (8.5-10.1); CHLORIDE 100 mmol/L (98-107); CREATININE 0.46 mg/dL (0.55-1.02)
[2018-12-03 07:14] VITALS: BP 163/82
[2018-12-03] MEDS: POTASSIUM CHLORIDE 20 MEQ PACKET PO SCH (09:26)
[2018-12-03] MEDS: FUROSEMIDE 40 MG/4 ML IV SCH (09:26)
[2018-12-03] MEDS: LISINOPRIL 10 MG TABLET PO SCH (09:27)
[2018-12-03] MEDS: METOPROLOL TARTRATE 25 MG TABLET PO SCH (09:27)
[2018-12-03] MEDS: GABAPENTIN 300 MG CAPSULE PO SCH (09:27)
[2018-12-03] MEDS: MULTIVITAMINS/MINERALS TABLET PO SCH (09:27)
[2018-12-03 12:05] VITALS: BP 145/78
[2018-12-03] MEDS ORDERED: POTA10CA PO (13:53)
[2018-12-03] MEDS ORDERED: AZIT500T5 PO (13:53)
[2018-12-03] MEDS ORDERED: CEFD300C37 PO (13:53)
[2018-12-03] MEDS ORDERED: FURO20TA3 PO (13:53)
[2018-12-03] MEDS ORDERED: TRAZODONE 50MG TABLET PO SCH (21:00)
== END 2018-12-03 15:55 | disposition home or self-care (01) | DRG 291 ==
LOC: ED 20:51 → EDIP 21:53 → 4EST 23:50 → DCLOUNGE 12-03 15:47
PROVIDERS: ADMIT Family Medicine; ATTEND Internal Medicine
DX: I11.0 Hypertensive heart disease with heart failure (principal); I50.31 Acute diastolic (congestive) heart failure; J15.9 Unspecified bacterial pneumonia; I45.2 Bifascicular block; F17.210 Nicotine dependence, cigarettes, uncomplicated; G62.9 Polyneuropathy, unspecified; F41.9 Anxiety disorder, unspecified; I35.1 Nonrheumatic aortic (valve) insufficiency; I35.2 Nonrheumatic aortic (valve) stenosis with insufficiency; Y95 Nosocomial condition; Z80.0 Family history of malignant neoplasm of digestive organs; Z80.1 Family history of malignant neoplasm of trachea, bronchus and lung; Z82.49 Family history of ischemic heart disease and other diseases of the circulatory system; Z85.71 Personal history of Hodgkin lymphoma; Z98.1 Arthrodesis status; Z88.0 Allergy status to penicillin; Z88.5 Allergy status to narcotic agent
CPT/HCPCS: 36415; 84145; 99285; J7620; 71045; 71275; 80048; 80053; 83605; 83880; 84484; 85025; 87040; 87070; 87205; 93005; 93306; 93970; 94640; 96365; 96368; 96375; G0378; J0456; J0696; J1170; J1650; J1885; J1940; J2405; Q9967; J0360; J7050

== ENCOUNTER 2019-08-11 21:26 | Emergency (ER) | payer OTHER ==
[~2019-08-11] VITALS: Ht 154.9 cm; Wt 60.3 kg
[~2019-08-11 21:26] MED LIST changes: +AZIT500T10 PO; +CEFD300C37 PO; +FAMO-79 PO; +FURO20TA3 PO; +HYDR-36 PO; +METH750T87 PO; +POTA10CA PO
[2019-08-11] MEDS ORDERED: ONDANSETRON 2MG/ML, 2ML IVPush ONE (22:00)
[2019-08-11] MEDS ORDERED: HYDROmorphone 1 MG/ML, 1ML INJ IV ONE (22:00)
[2019-08-11] MEDS ORDERED: ONDANSETRON 2MG/ML, 2ML ONE (22:08)
[2019-08-11] MEDS ORDERED: HYDROmorphone 1 MG/ML, 1ML INJ ONE (22:08)
[2019-08-11 22:21] LABS: BASOPHILS % (AUTO) 0 % (0-1); EOSINOPHILS % (AUTO) 2 % (1-7); LYMPHOCYTES # (AUTO) 1.14 x10^3/uL (1-3.4); LYMPHOCYTES % (AUTO) 10 % (22-44); MD NO; MEAN CORPUSCULAR HEMOGLOBIN 32.2 pg (27.0-34.8); MEAN CORPUSCULAR VOLUME 94.5 fL (80-100); MEAN PLATELET VOLUME 7.9 fL (7.4-10.4); MONOCYTES # (AUTO) 1.26 x10^3/uL (0.2-0.8); MONOCYTES % (AUTO) 11 % (2-9); NEUTROPHILS % (AUTO) 78 % (42-75); PLATELET COUNT 220 x10^3/uL (130-400); RED BLOOD COUNT 4.79 x10^6/uL (3.82-5.3); RED CELL DISTRIBUTION WIDTH 14.4 % (9.6-15.2)
--- NOTE | 2019-08-11 22:25 | NUR ---
pt resting on gurney, monitors in place, iv site started, iv fluids infusing and pt medicated per jul. pt 88% r/a, 3L n/c applied spo2-97%. call light within reach. awaiting lab, xray and ct result
[2019-08-11] MEDS ORDERED: SODIUM CHLORIDE 0.9% 1,000ML IVBOLUS ONE (22:30)
[2019-08-11 22:31] LABS: ALBUMIN 3.8 g/dL (3.4-5.0); ANION GAP 7 mmol/L (5-15); CALCIUM 9.4 mg/dL (8.5-10.1); CHLORIDE 101 mmol/L (98-107); CREATININE 0.66 mg/dL (0.55-1.02)
[2019-08-11 22:35] LABS: TROPONIN I < 0.015 ng/mL (0.000-0.045)
[2019-08-11] MEDS ORDERED: OXYC-307 PO (22:45)
--- NOTE | 2019-08-11 23:36 | NUR ---
PT RESTING CALMLY, MONITORS IN PLACE, DENIES NEEDS, CALL LIGHT WITHIN REACH. AWAITING CTA.
--- NOTE | 2019-08-11 23:54 | NUR ---
pt to ct
[2019-08-12] MEDS ORDERED: METHOCARBAMOL 750 MG TABLET ONE (00:41)
[2019-08-12] MEDS ORDERED: LIDODERM 5% PATCH TD ONE ×2 (00:42→01:00)
[2019-08-12] MEDS ORDERED: KETOROLAC 30 MG/1 ML ONE (00:42)
[2019-08-12 00:48] VITALS: BP 135/69
--- NOTE | 2019-08-12 00:53 | NUR ---
medicated as per order, pt taking po fluids. Lido patch placed where pt felt most pain
[2019-08-12] MEDS ORDERED: METHOCARBAMOL 500 MG TABLET PO ONE (01:00)
[2019-08-12] MEDS ORDERED: KETOROLAC 30 MG/1 ML IVPush ONE (01:00)
[2019-08-12] MEDS ORDERED: OMNIPAQUE 350 MG/ML, 100ML BOTTLE ONE (03:46)
== END 2019-08-12 01:47 | disposition home or self-care (01) ==
LOC: ED 22:25
DX: S16.1XXA Strain of muscle, fascia and tendon at neck level, initial encounter (principal); S29.012A Strain of muscle and tendon of back wall of thorax, initial encounter; I51.7 Cardiomegaly; I45.10 Unspecified right bundle-branch block; X58.XXXA Exposure to other specified factors, initial encounter; Y93.89 Activity, other specified; Y92.89 Other specified places as the place of occurrence of the external cause; Y99.8 Other external cause status
CPT/HCPCS: 36415; 71045; 71275; 80048; 82040; 84484; 85025; 85379; 93005; 96361; 96374; 96375; 99285; J1170; J1885; J2405; J7030; Q9967

== ENCOUNTER 2020-02-13 13:58 | Emergency (ER) | payer OTHER ==
[~2020-02-13] VITALS: Ht 154.9 cm; Wt 59.0 kg
[~2020-02-13 13:58] MED LIST changes: +HYDR-3246 PO; -HYDR-36 PO; +OXYC-307 PO
--- NOTE | 2020-02-13 14:19 | NUR ---
LARGE LINEAR LAC TO RT LATERAL SCALP; HIT HEAD ON METAL FAN. PT WEARING SOFT C-COLLAR FROM CHRONIC NECK PAIN. REPORTS CHRONIC BACK PAIN. PT IS TRANSGENDER; STATES "I WAS GOING TO TRANSITION TO MALE, BUT I DON'T THINK MY BODY CAN HANDLE IT". PT'S SPOUSE IN ROOM. ABLE TO MOVE ALL EXTREMETIES VOLUNTARILY. EKG DONE. INTERNAL MEDICINE NURSE PRACTITIONER AT FOR WOUND IRRIGATION.
[2020-02-13] MEDS ORDERED: LIDOCAINE 1%-EPI 1:100K, 20ML SQ ONE (14:30)
[2020-02-13] MEDS ORDERED: LIDOCAINE 1%-EPI 1:100K, 20ML ONE (14:33)
--- NOTE | 2020-02-13 14:40 | NUR ---
PT IN RADIOLOGY
[2020-02-13] MEDS ORDERED: CYCL-259 PO (14:51)
[2020-02-13] MEDS ORDERED: OMEP20CA20 PO (14:51)
[2020-02-13] MEDS ORDERED: OXYcodone/APAP 5/325MG TABLET ONE (15:26)
[2020-02-13] MEDS ORDERED: OXYcodone/APAP 5/325MG TABLET PO ONE (15:30)
--- NOTE | 2020-02-13 15:33 | NUR ---
LAC CLOSURE PER ZONIA GARVEY: 17 TIP. WOUND CARE DISCUSSED W/ PT AND SPOUSE: UNDERSTANDING VERBALIZED.
--- NOTE | 2020-02-13 15:35 | NUR ---
PERCOCET GIVEN PER EMAR
--- NOTE | 2020-02-13 15:36 | NUR ---
PT AWAITING XR
[2020-02-13] MEDS ORDERED: DIPH,PERTUSS(ACELL),TET VAC/PF 0.5 ML IM-VACC ONE ×2 (16:09→16:30)
--- NOTE | 2020-02-13 16:15 | NUR ---
TDAP GIVEN PER EMAR. SUTURE SITE BLEEDING; SITE WILL BE CLEANED AND PROVIDER WILL BE NOTIFIED.
--- NOTE | 2020-02-13 16:23 | NUR ---
ZONIA GARVEY AT BS
--- NOTE | 2020-02-13 16:28 | NUR ---
LUCINA KAMARA AT FOR WOUND DRESSING
[2020-02-13 17:00] VITALS: BP 157/99
== END 2020-02-13 17:12 ==
LOC: ED 14:27
DX: S42.002A Fracture of unspecified part of left clavicle, initial encounter for closed fracture (principal); S01.81XA Laceration without foreign body of other part of head, initial encounter; S29.012A Strain of muscle and tendon of back wall of thorax, initial encounter; R55 Syncope and collapse; I10 Essential (primary) hypertension; X58.XXXA Exposure to other specified factors, initial encounter; Y93.89 Activity, other specified; Y92.89 Other specified places as the place of occurrence of the external cause; Y99.8 Other external cause status
CPT/HCPCS: 12035; 70450; 72072; 73030; 90471; 90715; 99284; J3490

== ENCOUNTER 2020-02-13 20:57 | Emergency (ER) | payer OTHER ==
[~2020-02-13] VITALS: Ht 154.9 cm; Wt 58.4 kg
[~2020-02-13 20:57] MED LIST changes: +CYCL-259 PO; +OMEP20CA20 PO
[2020-02-13 21:00] VITALS: BP 106/67
== END 2020-02-13 22:54 | disposition home or self-care (01) ==
LOC: ED 22:09
DX: S01.01XD Laceration without foreign body of scalp, subsequent encounter (principal); R00.0 Tachycardia, unspecified; I21.9 Acute myocardial infarction, unspecified; I10 Essential (primary) hypertension; E87.1 Hypo-osmolality and hyponatremia; F17.210 Nicotine dependence, cigarettes, uncomplicated; Z48.02 Encounter for removal of sutures; X58.XXXD Exposure to other specified factors, subsequent encounter
CPT/HCPCS: 93005; 99283; 99406

== ENCOUNTER 2020-02-14 11:58 | Emergency (ER) | payer OTHER ==
[~2020-02-14] VITALS: Ht 154.9 cm; Wt 59.0 kg
[2020-02-14] MEDS ORDERED: SODIUM CHLORIDE 0.9% 1,000ML IVBOLUS ONE (12:30)
[2020-02-14] MEDS ORDERED: SODIUM CHLORIDE FLUSH 10ML SYR IVF ONE (12:30)
[2020-02-14 12:47] LABS: BASOPHILS # (AUTO) 0.01 x10^3/uL (0-0.1); BASOPHILS % (AUTO) 0 % (0-1); EOSINOPHILS # (AUTO) 0.05 x10^3/uL (0-0.4); EOSINOPHILS % (AUTO) 1 % (1-7); LYMPHOCYTES # (AUTO) 1.03 x10^3/uL (1-3.4); LYMPHOCYTES % (AUTO) 10 % (22-44); MD NO; MEAN CORPUSCULAR HEMOGLOBIN 31.4 pg (27.0-34.8); MEAN CORPUSCULAR HGB CONC 32.7 g/dL (32.4-35.8); MEAN PLATELET VOLUME 7.9 fL (7.4-10.4); MONOCYTES # (AUTO) 1.05 x10^3/uL (0.2-0.8); MONOCYTES % (AUTO) 10 % (2-9); NEUTROPHILS % (AUTO) 79 % (42-75); PLATELET COUNT 190 x10^3/uL (130-400); RED BLOOD COUNT 4.57 x10^6/uL (3.82-5.3); RED CELL DISTRIBUTION WIDTH 14.1 % (9.6-15.2)
[2020-02-14 13:01] LABS: ALANINE AMINOTRANSFERASE 78 U/L (12-78); ALBUMIN 3.4 g/dL (3.4-5.0); ANION GAP 11 mmol/L (5-15); CALCIUM 8.5 mg/dL (8.5-10.1); CHLORIDE 99 mmol/L (98-107); CREATININE 0.79 mg/dL (0.55-1.02)
[2020-02-14 13:03] LABS: ALKALINE PHOSPHATASE 167 U/L (45-117); BILIRUBIN,TOTAL 1.3 mg/dL (0.2-1.0); TOTAL PROTEIN 6.7 g/dL (6.4-8.2)
--- NOTE | 2020-02-14 13:42 | NUR ---
ALL RESULTS ARE BACK AT THIS TIME. CHART UP FOR RECHECK.
[2020-02-14 14:10] VITALS: BP 136/77
== END 2020-02-14 14:56 | disposition home or self-care (01) ==
LOC: ED 12:46
DX: S01.01XA Laceration without foreign body of scalp, initial encounter (principal); M54.2 Cervicalgia; I45.10 Unspecified right bundle-branch block; R55 Syncope and collapse; F17.200 Nicotine dependence, unspecified, uncomplicated; I10 Essential (primary) hypertension; W18.30XA Fall on same level, unspecified, initial encounter; Y93.89 Activity, other specified; Y92.009 Unspecified place in unspecified non-institutional (private) residence as the place of occurrence of the external cause; Y99.8 Other external cause status
CPT/HCPCS: 36415; 70450; 72125; 80053; 85025; 93005; 96360; 99285; J7030

== ENCOUNTER 2020-03-07 06:56 | Emergency (ER) | payer OTHER ==
[~2020-03-07] VITALS: Ht 154.9 cm; Wt 60.0 kg
--- NOTE | 2020-03-07 07:15 | NUR ---
PT BIB EMS FOR SIEZURE ACTIVITY. PER EMS 5 EPISODES LASTING APPROX 10 SEC. PT TAKES GABAPENTIN, SEIZURE WORSENED AFTER CERVICAL PLATE NECK SURGERY 10 YEARS AGO. PT ALSO ETOH, 1 CASE BEER A DAY. LAST DRINK 2 DAYS AGO. DENIES CP, COB OR COUGH. SEIZURE PRECAUTIONS IN PLACE, POWDERER IN PLACE, EKG DONE. PT HAS OLD WOUND FROM FALL ON HEAD.
[2020-03-07] MEDS ORDERED: LORazepam 2 MG/ML, 1ML IVPush ONE (07:30)
[2020-03-07] MEDS ORDERED: SODIUM CHLORIDE FLUSH 10ML SYR IVF ONE (07:30)
[2020-03-07 07:33] LABS: BASOPHILS % (AUTO) 1 % (0-1); EOSINOPHILS % (AUTO) 2 % (1-7); LYMPHOCYTES % (AUTO) 19 % (22-44); MEAN CORPUSCULAR HEMOGLOBIN 31.5 pg (27.0-34.8); MEAN CORPUSCULAR HGB CONC 33.4 g/dL (32.4-35.8); MEAN PLATELET VOLUME 7.5 fL (7.4-10.4); MONOCYTES % (AUTO) 11 % (2-9); NEUTROPHILS % (AUTO) 68 % (42-75); PLATELET COUNT 247 x10^3/uL (130-400); RED BLOOD COUNT 4.29 x10^6/uL (3.82-5.3); RED CELL DISTRIBUTION WIDTH 14.4 % (9.6-15.2)
--- NOTE | 2020-03-07 07:35 | NUR ---
PT IN IMAGING
[2020-03-07 07:37] LABS: MD NO
[2020-03-07 07:41] LABS: ALBUMIN 3.6 g/dL (3.4-5.0); ANION GAP 7 mmol/L (5-15); CALCIUM 9.2 mg/dL (8.5-10.1); CHLORIDE 101 mmol/L (98-107); CREATININE 0.94 mg/dL (0.55-1.02); INTERNATIONAL NORMALIZED RATIO 1.09 (0.93-1.1); PROTHROMBIN TIME 11.2 Seconds (9.6-11.5)
[2020-03-07 07:45] LABS: TROPONIN I < 0.015 ng/mL (0.000-0.045)
--- NOTE | 2020-03-07 08:45 | NUR ---
PT AMBULATED TO BATHROOM W STEADY GAIT. VSS
[2020-03-07 09:17] VITALS: BP 172/91
--- NOTE | 2020-03-07 09:31 | NUR ---
Mary Anne ewing in [facility] - 03/07/20 at 0931 by MARIA ISABEL d
--- NOTE | 2020-03-07 09:31 | NUR ---
Patient/Caregiver given discharge instructions and they have confirmed that they understand the instructions. Patient ambulatory with steady gait.
[2020-03-07 09:34] LABS: MICROSCOPIC INDICATED
== END 2020-03-07 09:33 | disposition home or self-care (01) ==
LOC: ED 07:10
DX: F10.239 Alcohol dependence with withdrawal, unspecified (principal); R45.4 Irritability and anger; R56.9 Unspecified convulsions; R55 Syncope and collapse; I10 Essential (primary) hypertension; R00.0 Tachycardia, unspecified; I45.10 Unspecified right bundle-branch block; F17.200 Nicotine dependence, unspecified, uncomplicated; Y90.0 Blood alcohol level of less than 20 mg/100 ml
CPT/HCPCS: 36415; 70450; 80048; 80307; 81001; 82040; 82140; 84484; 85025; 85610; 85730; 87086; 93005; 99285